=== PATIENT | male | born 1935 | race Caucasian/White ===

== ENCOUNTER 2017-05-10 01:08 | Inpatient (IN) | payer OTHER, MEDICARE ==
[~2017-05-10] VITALS: Ht 170.2 cm; Wt 71.8 kg
[~2017-05-10 01:08] MED LIST: ASPI-1265 PO; CHOL400C8 PO; DOCU100C41 PO; FAMO40TA7 PO; FOLI0.8T39 PO; GUAI200T5 PO; IBUP-1984 PO; METO25TA6 PO; SEVE800T8 PO
[2017-05-10] MEDS ORDERED: acetaminophen 325mg tablet PO ONE (01:45)
[2017-05-10] MEDS ORDERED: HYDROcodone/acetaminophen 5mg/325mg tablet PO ONE (01:45)
[2017-05-10 01:48] LABS: PROTHROMBIN TIME 10.5 SECONDS (9.0-12.0)
[2017-05-10 01:49] LABS: BASOPHILS % (AUTO) 0.3 % (0-1); EOSINOPHILS # (AUTO) 0.1 X10'3 (0-0.9); EOSINOPHILS % (AUTO) 1.3 % (0-6); HEMATOCRIT 32.1 % (42.0-52.0); HEMOGLOBIN 10.4 g/dl (14.0-17.9); LYMPHOCYTES # (AUTO) 1.3 X10'3 (1.1-4.8); LYMPHOCYTES % (AUTO) 18.9 % (21-51); MEAN CORPUSCULAR HEMOGLOBIN 31.9 PG (27.0-31.0); MEAN CORPUSCULAR HGB CONC 32.3 % (33.0-36.5); MEAN CORPUSCULAR VOLUME 98.8 FL (78-98); MEAN PLATELET VOLUME 9.8 FL (7.4-10.4); MONOCYTES # (AUTO) 0.9 X10'3 (0-0.9); NEUTROPHILS # (AUTO) 4.7 X10'3 (1.8-7.7); NEUTROPHILS % (AUTO) 66.5 % (42-75); PLATELET COUNT 266 X10'3 (140-440); RED BLOOD COUNT 3.25 X10'6 (4.70-6.10); RED CELL DISTRIBUTION WIDTH 15.6 % (11.5-14.5)
[2017-05-10 01:53] LABS: ALANINE AMINOTRANSFERASE 18 U/L (12-78); ALBUMIN 2.9 G/DL (3.4-5.0); ALBUMIN/GLOBULIN RATIO 0.8 (1.1-1.5); ALKALINE PHOSPHATASE 104 IU/L (46-116); ANION GAP 5 (8-16); ASPARTATE AMINO TRANSFERASE 13 U/L (10-37); BILIRUBIN,TOTAL 0.3 MG/DL (0.1-1.0); BLOOD UREA NITROGEN 37 MG/DL (7-18); BUN/CREATININE RATIO 6.3 (5.4-32.0); CHLORIDE 106 MMOL/L (99-107); CREATININE 5.89 MG/DL (0.60-1.10); GLUCOSE 128 MG/DL (70-104); POTASSIUM 4.4 MMOL/L (3.5-5.1); SODIUM 146 MMOL/L (135-145); TOTAL CARBON DIOXIDE 34.6 MMOL/L (24-32); TOTAL PROTEIN 6.6 G/DL (6.4-8.2); eGFR 9 ML/MIN
[2017-05-10] MEDS ORDERED: aspirin 325mg tablet PO ONE (02:00)
[2017-05-10] MEDS ORDERED: nitroGLYCERIN 0.4mg SUBLingual tab SL PRN (03:15)
[2017-05-10 03:45] LABS: HEMOGLOBIN A1C 5.6 % (4.5-6.2)
[2017-05-10] MEDS ORDERED: heparin 10,000 units/1 ML INJ IV ONE (03:55)
[2017-05-10] MEDS ORDERED: heparin 10,000 units/1 ML INJ IV PRN (03:55)
[2017-05-10 04:30] VITALS: BP 154/82
[2017-05-10 05:30] VITALS: BP 151/80
[2017-05-10] MEDS ORDERED: sevelamer carbonate 800mg tablet PO SCH (08:00)
[2017-05-10] MEDS ORDERED: metoprolol tartrate 25mg tablet PO SCH (08:00)
[2017-05-10] MEDS ORDERED: aspirin 81mg tablet.DR PO SCH (08:00)
[2017-05-10] MEDS ORDERED: nitroGLYCERIN 1gm ointment UD TP PRN (10:10)
[2017-05-10] MEDS ORDERED: NITR1OIN TP (10:30)
[2017-05-11] MEDS ORDERED: METO25TA6 PO (20:56)
== END 2017-05-10 11:00 | disposition home or self-care (01) | DRG 193 ==
LOC: ER 01:09 → ED HOLD 03:14 → PCU 3S 04:30
PROVIDERS: ADMIT Internal Medicine Critical Care Medicine; ATTEND Internal Medicine Critical Care Medicine
DX: R09.1 Pleurisy (principal); N18.6 End stage renal disease; I12.0 Hypertensive chronic kidney disease with stage 5 chronic kidney disease or end stage renal disease; R07.89 Other chest pain; I25.10 Atherosclerotic heart disease of native coronary artery without angina pectoris; G43.909 Migraine, unspecified, not intractable, without status migrainosus; M48.00 Spinal stenosis, site unspecified; I25.2 Old myocardial infarction; Z90.5 Acquired absence of kidney; Z99.2 Dependence on renal dialysis; Z88.5 Allergy status to narcotic agent; Z79.899 Other long term (current) drug therapy; Z85.528 Personal history of other malignant neoplasm of kidney
CPT/HCPCS: 36415; 70450; 71045; 80053; 82948; 83036; 83735; 83880; 84145; 84484; 85025; 85610; 87070; 93005; 93308; 97116; 97161; 99285; J1644; J2270

== ENCOUNTER 2017-05-11 01:35 | Emergency (ER) | payer OTHER, MEDICARE ==
[~2017-05-11] VITALS: Ht 170.2 cm; Wt 72.2 kg
[~2017-05-11 01:35] MED LIST changes: -ASPI-1265 PO; -GUAI200T5 PO; -IBUP-1984 PO; +NITR1OIN TP
[2017-05-11 02:26] LABS: ALBUMIN 3.2 G/DL (3.4-5.0); ANION GAP 8 (8-16); BLOOD UREA NITROGEN 49 MG/DL (7-18); BUN/CREATININE RATIO 6.6 (5.4-32.0); CHLORIDE 105 MMOL/L (99-107); GLUCOSE 187 MG/DL (70-104); SODIUM 145 MMOL/L (135-145); TOTAL CARBON DIOXIDE 32.3 MMOL/L (24-32); eGFR 7 ML/MIN
[2017-05-11 03:56] VITALS: BP 143/91
[2017-05-11] MEDS ORDERED: METO25TA6 PO (20:56)
== END 2017-05-11 04:00 | disposition home or self-care (01) ==
LOC: ER 01:35
DX: I12.0 Hypertensive chronic kidney disease with stage 5 chronic kidney disease or end stage renal disease (principal); N18.6 End stage renal disease; I21.4 Non-ST elevation (NSTEMI) myocardial infarction; R51 Headache; Z88.5 Allergy status to narcotic agent; Z99.2 Dependence on renal dialysis
CPT/HCPCS: 36415; 80048; 83880; 84484; 93005; 99285

== ENCOUNTER 2017-05-11 17:23 | Inpatient (IN) | payer OTHER, MEDICARE ==
[~2017-05-11] VITALS: Ht 170.2 cm; Wt 71.3 kg
[2017-05-11 20:04] LABS: BASOPHILS % (AUTO) 0.4 % (0-1); EOSINOPHILS # (AUTO) 0.1 X10'3 (0-0.9); EOSINOPHILS % (AUTO) 1.2 % (0-6); HEMATOCRIT 32.5 % (42.0-52.0); HEMOGLOBIN 10.7 g/dl (14.0-17.9); LYMPHOCYTES # (AUTO) 1.3 X10'3 (1.1-4.8); LYMPHOCYTES % (AUTO) 14.2 % (21-51); MEAN CORPUSCULAR HEMOGLOBIN 33.1 PG (27.0-31.0); MEAN CORPUSCULAR VOLUME 100.2 FL (78-98); MEAN PLATELET VOLUME 8.9 FL (7.4-10.4); MONOCYTES # (AUTO) 1.4 X10'3 (0-0.9); MONOCYTES % (AUTO) 15.6 % (2-12); NEUTROPHILS # (AUTO) 6.2 X10'3 (1.8-7.7); NEUTROPHILS % (AUTO) 68.6 % (42-75); PLATELET COUNT 261 X10'3 (140-440); RED BLOOD COUNT 3.24 X10'6 (4.70-6.10); RED CELL DISTRIBUTION WIDTH 16.2 % (11.5-14.5); WHITE BLOOD COUNT 9.1 X10'3 (4.5-11.0)
[2017-05-11 20:12] LABS: CLARITY,URINE CLEAR (Clear); COLOR,URINE YELLOW (Yellow); GLUCOSE, URINE 250 mg/dl (Neg); KETONES,URINE NEGATIVE (Neg); LEUKOCYTE ESTERASE ,URINE NEGATIVE (Neg); NITRITES, URINE NEGATIVE (Neg); OCCULT BLOOD,URINE TRACE-INTACT (Neg); PH,URINE >=9.0 (4.8-8.0); PROTEIN,URINE >=300 mg/dl (Neg); UROBILINOGEN,URINE 0.2 E.U/dL (0.2-1.0)
[2017-05-11 20:13] LABS: PARTIAL THROMBOPLASTIN TIME 30 SECONDS (22-32); PROTHROMBIN TIME 10.6 SECONDS (9.0-12.0)
[2017-05-11 20:14] LABS: UA COLLECTION TYPE VOIDED
[2017-05-11 20:18] LABS: ALANINE AMINOTRANSFERASE 32 U/L (12-78); ALBUMIN/GLOBULIN RATIO 0.8 (1.1-1.5); ALKALINE PHOSPHATASE 84 IU/L (46-116); ANION GAP 5 (8-16); ASPARTATE AMINO TRANSFERASE 27 U/L (10-37); BILIRUBIN,TOTAL 0.5 MG/DL (0.1-1.0); BLOOD UREA NITROGEN 29 MG/DL (7-18); BUN/CREATININE RATIO 5.7 (5.4-32.0); CALCIUM 9.3 MG/DL (8.5-10.1); CHLORIDE 100 MMOL/L (99-107); CREATININE 5.07 MG/DL (0.60-1.10); GLUCOSE 126 MG/DL (70-104); POTASSIUM 3.9 MMOL/L (3.5-5.1); SODIUM 141 MMOL/L (135-145); TOTAL CARBON DIOXIDE 36.2 MMOL/L (24-32); eGFR 11 ML/MIN
[2017-05-11 20:28] LABS: ETHANOL < 0.010 GM/DL (0.0-0.010)
[2017-05-11 20:30] LABS: SQUAMOUS EPITHELIAL CELL,UR MODERATE /LPF (FEW); TRANSITIONAL EPI CELLS,URINE FEW /HPF
[2017-05-11 20:31] LABS: BACTERIA,URINE FEW /HPF (Neg); RBC,URINE 0-2 /HPF (0-2); WBC,URINE 0-4 /HPF (0-4)
[2017-05-11] MEDS ORDERED: METO25TA6 PO (20:56)
[2017-05-11 20:58] LABS: ANISOCYTOSIS 1+; PLATELET ESTIMATE NORMAL
[2017-05-11] MEDS ORDERED: normal saline 1000ml 1,000 ML IV SCH (21:43)
[2017-05-11] MEDS ORDERED: ibuprofen tablet 400 MG TABLET PO ONE (23:55)
[2017-05-12] MEDS ORDERED: LORazepam 2 mg/ml vial IV ONE (02:30)
[2017-05-12 08:42] LABS: PARTIAL THROMBOPLASTIN TIME 31 SECONDS (22-32); PROTHROMBIN TIME 10.8 SECONDS (9.0-12.0)
[2017-05-12 08:54] LABS: ALANINE AMINOTRANSFERASE 19 U/L (12-78); ALBUMIN 2.7 G/DL (3.4-5.0); ALBUMIN/GLOBULIN RATIO 0.8 (1.1-1.5); ALKALINE PHOSPHATASE 81 IU/L (46-116); ANION GAP 8 (8-16); ASPARTATE AMINO TRANSFERASE 15 U/L (10-37); BILIRUBIN,TOTAL 0.6 MG/DL (0.1-1.0); BLOOD UREA NITROGEN 34 MG/DL (7-18); BUN/CREATININE RATIO 5.9 (5.4-32.0); CALCIUM 8.9 MG/DL (8.5-10.1); CHLORIDE 102 MMOL/L (99-107); CHOL/HDL RATIO 3.6 (0.00-4.99); CHOLESTEROL 155 MG/DL (0-200); CREATININE 5.73 MG/DL (0.60-1.10); GLUCOSE 185 MG/DL (70-104); HDL CHOLESTEROL 43 MG/DL (35-60); LDL CHOLESTEROL 98 MG/DL (50-100); MAGNESIUM 1.8 MG/DL (1.5-2.4); POTASSIUM 4.2 MMOL/L (3.5-5.1); SODIUM 142 MMOL/L (135-145); TOTAL CARBON DIOXIDE 31.7 MMOL/L (24-32); TOTAL PROTEIN 6.3 G/DL (6.4-8.2); TRIGLYCERIDES 108 MG/DL (20-135); eGFR 10 ML/MIN
[2017-05-12 08:55] LABS: BASOPHILS % (AUTO) 0.4 % (0-1); EOSINOPHILS # (AUTO) 0.1 X10'3 (0-0.9); EOSINOPHILS % (AUTO) 0.9 % (0-6); HEMATOCRIT 31.7 % (42.0-52.0); HEMOGLOBIN 10.4 g/dl (14.0-17.9); LYMPHOCYTES # (AUTO) 0.9 X10'3 (1.1-4.8); LYMPHOCYTES % (AUTO) 12.2 % (21-51); MEAN CORPUSCULAR HEMOGLOBIN 32.7 PG (27.0-31.0); MEAN CORPUSCULAR HGB CONC 32.9 % (33.0-36.5); MEAN CORPUSCULAR VOLUME 99.4 FL (78-98); MEAN PLATELET VOLUME 9.3 FL (7.4-10.4); MONOCYTES % (AUTO) 14.4 % (2-12); NEUTROPHILS % (AUTO) 72.1 % (42-75); PLATELET COUNT 213 X10'3 (140-440); RED BLOOD COUNT 3.18 X10'6 (4.70-6.10); RED CELL DISTRIBUTION WIDTH 16.9 % (11.5-14.5)
[2017-05-12] MEDS: aspirin 81mg tablet.DR PO SCH (09:17)
[2017-05-12] MEDS: heparin, porcine 5000 units/ml vial SQ SCH ×2 (09:17→20:33)
[2017-05-12] MEDS ORDERED: furosemide 10 MG/1 ML 10ml inj IV ONE (11:50)
[2017-05-12 13:00] VITALS: BP 147/77
[2017-05-12 16:11] VITALS: BP 147/94
[2017-05-12 18:00] VITALS: BP 157/70
[2017-05-12 22:00] VITALS: BP 176/79
[2017-05-13 02:00] VITALS: BP 155/78
[2017-05-13 05:25] LABS: BASOPHILS % (AUTO) 0.3 % (0-1); EOSINOPHILS # (AUTO) 0.1 X10'3 (0-0.9); EOSINOPHILS % (AUTO) 1.6 % (0-6); HEMATOCRIT 31.7 % (42.0-52.0); HEMOGLOBIN 10.5 g/dl (14.0-17.9); LYMPHOCYTES # (AUTO) 0.8 X10'3 (1.1-4.8); LYMPHOCYTES % (AUTO) 11.6 % (21-51); MEAN CORPUSCULAR HEMOGLOBIN 32.7 PG (27.0-31.0); MEAN CORPUSCULAR HGB CONC 33.1 % (33.0-36.5); MEAN PLATELET VOLUME 9.6 FL (7.4-10.4); MONOCYTES # (AUTO) 1.1 X10'3 (0-0.9); NEUTROPHILS # (AUTO) 4.8 X10'3 (1.8-7.7); NEUTROPHILS % (AUTO) 70.5 % (42-75); PLATELET COUNT 212 X10'3 (140-440); RED CELL DISTRIBUTION WIDTH 16.6 % (11.5-14.5); WHITE BLOOD COUNT 6.9 X10'3 (4.5-11.0)
[2017-05-13 05:43] LABS: PARTIAL THROMBOPLASTIN TIME 31 SECONDS (22-32); PROTHROMBIN TIME 10.7 SECONDS (9.0-12.0)
[2017-05-13 06:11] LABS: ALANINE AMINOTRANSFERASE 22 U/L (12-78); ALBUMIN 2.6 G/DL (3.4-5.0); ALBUMIN/GLOBULIN RATIO 0.7 (1.1-1.5); ALKALINE PHOSPHATASE 77 IU/L (46-116); ANION GAP 10 (8-16); ASPARTATE AMINO TRANSFERASE 24 U/L (10-37); BILIRUBIN,TOTAL 0.6 MG/DL (0.1-1.0); BLOOD UREA NITROGEN 50 MG/DL (7-18); BUN/CREATININE RATIO 6.6 (5.4-32.0); CHLORIDE 102 MMOL/L (99-107); CREATININE 7.59 MG/DL (0.60-1.10); GLUCOSE 125 MG/DL (70-104); POTASSIUM 4.5 MMOL/L (3.5-5.1); SODIUM 141 MMOL/L (135-145); TOTAL CARBON DIOXIDE 28.6 MMOL/L (24-32); TOTAL PROTEIN 6.2 G/DL (6.4-8.2); eGFR 7 ML/MIN
[2017-05-13 08:00] VITALS: BP 159/85
[2017-05-13] MEDS ORDERED: normal saline 1000ml 250 ML IV PRN (09:10)
[2017-05-13] MEDS ORDERED: heparin 1,000 units/ml 10ml inj IV ONE (09:10)
[2017-05-13] MEDS ORDERED: LIDOcaine 1% (10mg/ml) 2ml vial SQ ONE (09:10)
[2017-05-13] MEDS: aspirin 81mg tablet.DR PO SCH (09:11)
[2017-05-13] MEDS: heparin, porcine 5000 units/ml vial SQ SCH (09:11)
[2017-05-13 12:04] VITALS: BP 130/82
[2017-05-13] MEDS ORDERED: clopidogrel 75mg tablet PO SCH (12:40)
[2017-05-13] MEDS ORDERED: ASPI-1071 PO (12:42)
[2017-05-13] MEDS ORDERED: CLOP75TA15 PO (12:42)
[2017-05-13 16:04] LABS: UREA NITROGEN 24HR,URINE 1.2 GM/24HR (7-20)
== END 2017-05-13 15:00 | DRG 69 ==
LOC: ER 17:23 → ED HOLD 21:37 → PCU 3S 05-12 12:59
PROVIDERS: ADMIT Internal Medicine Critical Care Medicine; ATTEND Internal Medicine Critical Care Medicine
PROC: 5A1D70Z Performance of Urinary Filtration, Intermittent, Less than 6 Hours Per Day (ICD-10-PCS; principal; 2017-05-13)
DX: G45.9 Transient cerebral ischemic attack, unspecified (principal); I12.0 Hypertensive chronic kidney disease with stage 5 chronic kidney disease or end stage renal disease; N18.6 End stage renal disease; I08.3 Combined rheumatic disorders of mitral, aortic and tricuspid valves; R13.0 Aphagia; R56.9 Unspecified convulsions; R47.01 Aphasia; I25.10 Atherosclerotic heart disease of native coronary artery without angina pectoris; G43.909 Migraine, unspecified, not intractable, without status migrainosus; R41.3 Other amnesia; B34.9 Viral infection, unspecified; Z99.2 Dependence on renal dialysis; I25.2 Old myocardial infarction; Z88.5 Allergy status to narcotic agent; Z79.899 Other long term (current) drug therapy; Z87.891 Personal history of nicotine dependence
CPT/HCPCS: 36415; 70450; 70544; 70551; 71046; 80053; 80061; 80320; 81001; 82570; 82948; 83036; 83735; 84156; 84439; 84443; 84560; 85025; 85610; 85730; 87070; 92616; 93005; 99285; G0257; J1644; J1940; J2060; J3490; J7030

== ENCOUNTER 2019-02-20 15:52 | Emergency (ER) | payer MEDICARE, OTHER ==
[~2019-02-20] VITALS: Ht 170.2 cm; Wt 72.7 kg
[~2019-02-20 15:52] MED LIST changes: +ASPI-1071 PO; +CLOP75TA15 PO; -NITR1OIN TP
[2019-02-20 17:16] LABS: BASOPHILS % (AUTO) 0.3 % (0-1); EOSINOPHILS % (AUTO) 0 % (0-6); HEMATOCRIT 33.1 % (42.0-52.0); HEMOGLOBIN 11.5 g/dl (14.0-17.9); LYMPHOCYTES # (AUTO) 0.5 X10'3 (1.1-4.8); MEAN CORPUSCULAR HEMOGLOBIN 35.1 PG (27.0-31.0); MEAN CORPUSCULAR HGB CONC 34.7 g/dL (33.0-36.5); MEAN CORPUSCULAR VOLUME 101.3 FL (78-98); MEAN PLATELET VOLUME 9.2 FL (7.4-10.4); MONOCYTES # (AUTO) 0.8 X10'3 (0-0.9); MONOCYTES % (AUTO) 13.2 % (2-12); NEUTROPHILS # (AUTO) 4.6 X10'3 (1.8-7.7); NEUTROPHILS % (AUTO) 78.5 % (42-75); PLATELET COUNT 147 X10'3 (140-440); RED BLOOD COUNT 3.27 X10'6 (4.70-6.10); RED CELL DISTRIBUTION WIDTH 13.9 % (11.5-14.5); WHITE BLOOD COUNT 5.9 X10'3 (4.5-11.0)
[2019-02-20 17:22] LABS: PARTIAL THROMBOPLASTIN TIME 27 SECONDS (22-32)
[2019-02-20 17:24] LABS: ALANINE AMINOTRANSFERASE 27 U/L (12-78); ALBUMIN 3.2 G/DL (3.4-5.0); ALBUMIN/GLOBULIN RATIO 0.9 (1.1-1.5); ALKALINE PHOSPHATASE 85 IU/L (46-116); ANION GAP 7 (8-16); ASPARTATE AMINO TRANSFERASE 24 U/L (10-37); BILIRUBIN,TOTAL 0.5 MG/DL (0.1-1.0); BLOOD UREA NITROGEN 17 MG/DL (7-18); BUN/CREATININE RATIO 2.9 (5.4-32.0); CALCIUM 9.6 MG/DL (8.5-10.1); CHLORIDE 104 MMOL/L (99-107); CREATININE 5.81 MG/DL (0.60-1.10); GLUCOSE 114 MG/DL (70-104); POTASSIUM 3.3 MMOL/L (3.5-5.1); SODIUM 139 MMOL/L (135-145); TOTAL CARBON DIOXIDE 28.3 MMOL/L (24-32); TOTAL PROTEIN 6.8 G/DL (6.4-8.2); eGFR 9 ML/MIN
[2019-02-20 18:11] LABS: ETHANOL < 0.010 GM/DL (0.0-0.010)
--- NOTE | 2019-02-20 18:30 | NUR ---
assumed care of pat . pt currently loc x4 all vss updated plan of care. rr unlabored . attentive at the bedside
--- NOTE | 2019-02-20 19:15 | NUR ---
pt repositioned and given a warm blanket and reviewed labs
[2019-02-20 19:41] VITALS: BP 130/59
--- NOTE | 2019-02-20 19:46 | NUR ---
PT TROPONIN AT 0.09 FROM THE [address] BERGMAN AWARE OF THE TREND AND IS COMFORTBALE WITH DISCHARGE . STATED PT IS ON DILYSIS AND THIS IS EXPECTED TO BE SEEN WITH HIS CURRENT MEDICAL CONDITION
== END 2019-02-20 19:49 | disposition home or self-care (01) ==
LOC: ER 15:52
DX: I12.0 Hypertensive chronic kidney disease with stage 5 chronic kidney disease or end stage renal disease (principal); N18.6 End stage renal disease; G43.909 Migraine, unspecified, not intractable, without status migrainosus; I25.10 Atherosclerotic heart disease of native coronary artery without angina pectoris; I25.2 Old myocardial infarction; Z98.61 Coronary angioplasty status; Z99.2 Dependence on renal dialysis; Z88.5 Allergy status to narcotic agent; Z79.82 Long term (current) use of aspirin; Z79.899 Other long term (current) drug therapy
CPT/HCPCS: 36415; 70450; 71045; 80053; 80320; 82140; 83605; 84484; 85025; 85610; 85730; 87040; 93005; 99284

== ENCOUNTER 2019-03-20 14:09 | Outpatient (CLI) | payer OTHER | END 2019-03-20 23:59 | disposition home or self-care (01) | LOC: RAD 14:09 | PROVIDERS: ATTEND Nurse Practitioner Family | DX: R13.14 Dysphagia, pharyngoesophageal phase (principal); K21.9 Gastro-esophageal reflux disease without esophagitis; I10 Essential (primary) hypertension; M19.90 Unspecified osteoarthritis, unspecified site; Z87.891 Personal history of nicotine dependence; Z79.899 Other long term (current) drug therapy | CPT/HCPCS: 74220; 74230 ==

== ENCOUNTER 2019-12-09 13:45 | Emergency (ER) | payer OTHER ==
[~2019-12-09] VITALS: Ht 170.2 cm; Wt 72.7 kg
[2019-12-09] MEDS ORDERED: HYDROcodone/acetaminophen 10/325mg tab PO ONE (14:15)
[2019-12-09 15:33] VITALS: BP 138/62
== END 2019-12-09 15:35 | disposition home or self-care (01) ==
LOC: ER 13:46
DX: R58 Hemorrhage, not elsewhere classified (principal); N18.6 End stage renal disease; G43.909 Migraine, unspecified, not intractable, without status migrainosus; I25.10 Atherosclerotic heart disease of native coronary artery without angina pectoris; I12.0 Hypertensive chronic kidney disease with stage 5 chronic kidney disease or end stage renal disease; I25.2 Old myocardial infarction; Z99.2 Dependence on renal dialysis; Z98.61 Coronary angioplasty status; Z88.5 Allergy status to narcotic agent; Z79.82 Long term (current) use of aspirin; Z79.899 Other long term (current) drug therapy
CPT/HCPCS: 99283

== ENCOUNTER 2020-11-14 10:19 | Observation (INO) | payer OTHER ==
[~2020-11-14] VITALS: Ht 170.2 cm; Wt 65.0 kg
[~2020-11-14 10:19] MED LIST changes: +LOP25T PO; -METO25TA6 PO
[2020-11-14 11:26] LABS: BASOPHILS % (AUTO) 0.4 % (0-1); EOSINOPHILS % (AUTO) 0.4 % (0-6); HEMOGLOBIN 11.6 g/dl (14.0-17.9); LYMPHOCYTES # (AUTO) 1.5 X10'3 (1.1-4.8); LYMPHOCYTES % (AUTO) 29.3 % (21-51); MEAN CORPUSCULAR HEMOGLOBIN 35.3 PG (27.0-31.0); MEAN CORPUSCULAR HGB CONC 34.2 g/dL (33.0-36.5); MEAN CORPUSCULAR VOLUME 103.2 FL (78-98); MEAN PLATELET VOLUME 9.6 FL (7.4-10.4); MONOCYTES # (AUTO) 0.7 X10'3 (0-0.9); MONOCYTES % (AUTO) 13.6 % (2-12); NEUTROPHILS # (AUTO) 2.9 X10'3 (1.8-7.7); NEUTROPHILS % (AUTO) 56.3 % (42-75); PLATELET COUNT 144 X10'3 (140-440); RED BLOOD COUNT 3.29 X10'6 (4.70-6.10); RED CELL DISTRIBUTION WIDTH 13.7 % (11.5-14.5); WHITE BLOOD COUNT 5.1 X10'3 (4.5-11.0)
[2020-11-14 11:45] LABS: ALANINE AMINOTRANSFERASE 19 U/L (12-78); ALBUMIN 2.8 G/DL (3.4-5.0); ALBUMIN/GLOBULIN RATIO 0.8 (1.1-1.5); ALKALINE PHOSPHATASE 74 IU/L (46-116); ANION GAP 7 (8-16); ASPARTATE AMINO TRANSFERASE 16 U/L (10-37); BILIRUBIN,TOTAL 0.8 MG/DL (0.1-1.0); BLOOD UREA NITROGEN 14 MG/DL (7-18); BUN/CREATININE RATIO 2.3 (5.4-32.0); CALCIUM 9.4 MG/DL (8.5-10.1); CHLORIDE 103 MMOL/L (99-107); CREATININE 6.07 MG/DL (0.60-1.10); GLUCOSE 90 MG/DL (70-104); POTASSIUM 4.3 MMOL/L (3.5-5.1); SODIUM 141 MMOL/L (135-145); TOTAL CARBON DIOXIDE 31.3 MMOL/L (24-32); TOTAL PROTEIN 6.4 G/DL (6.4-8.2); eGFR 9 ML/MIN
--- NOTE | 2020-11-14 13:24 | NUR ---
BP HIGH 189/71 HR 62, REPORTS HE DIDNT TAKE HIS CARVEDILOL 6.25MG THIS MORNING.DR PORTER MADE AWARE.OK TO GIVE PO MED X1.
[2020-11-14] MEDS ORDERED: furosemide 10 MG/1 ML 10ml inj IV ONE (13:25)
[2020-11-14] MEDS ORDERED: carVEDilol 3.125mg tablet PO STA (13:25)
[2020-11-14] MEDS ORDERED: nitroGLYCERIN 0.4mg SUBLingual tab SL PRN ×2 (13:25→14:30)
--- NOTE | 2020-11-14 13:55 | NUR ---
TO CT VIA [facility]
[2020-11-14] MEDS ORDERED: magnesium hydroxide 30ml (MOM) UD suspension PO PRN (14:30)
[2020-11-14] MEDS ORDERED: acetaminophen 325mg tablet PO PRN ×2 (14:30)
[2020-11-14] MEDS ORDERED: ondansetron/PF 4mg/2ml inj IV PRN (14:30)
[2020-11-14] MEDS ORDERED: morphine 2 MG/ML inj. syringe IV PRN ×2 (14:30)
[2020-11-14] MEDS ORDERED: mag hydrox/Alum hydrox/simeth 30ml oral suspension PO PRN (14:30)
--- NOTE | 2020-11-14 15:00 | NUR ---
SPOUSE AT BEDSIDE.
[2020-11-14] MEDS ORDERED: CARV-49 PO (17:12)
--- NOTE | 2020-11-14 17:20 | NUR ---
Patient in room ED 4. I have received report from Mere SHERMAN and had the opportunity to ask questions and assume patient care.
--- NOTE | 2020-11-14 17:30 | NUR ---
REPORT TO WHIT SERNA ON ORTHO-NEURO. DAPHNE CONCERNED ABOUT PATIENT PERSISTENT BP 180/69. PAGE TO DR. PUGH FOR POSSIBLE BLOOD PRESSURE MEDICATION. PAGER ID: [phone] MESSAGE: ER BED #4 C.S. STILL HAS BP 180/69. LASIX AND COREG GIVEN EARLIER. MED-ASSEMBLY RIVETER WOULD LIKE MED FOR PERSISTENT ELEVATED BP. THANK YOU, EDGARD [phone]
[2020-11-14 18:00] VITALS: BP 190/73
--- NOTE | 2020-11-14 18:02 | NUR ---
PAGER ID: [phone] MESSAGE: Sofía SHERMAN [phone] RE: Virgilio Rivera [id number]. Pts BP 190/73. Thank you.
--- NOTE | 2020-11-14 18:35 | NUR ---
Problems reprioritized. Patient report given, questions answered & plan of care reviewed with Cathryn SHERMAN.
[2020-11-14] MEDS ORDERED: carVEDilol 12.5mg tablet PO ONE (19:40)
[2020-11-14] MEDS: sevelamer carbonate 800mg tablet PO SCH (19:45)
--- NOTE | 2020-11-14 20:00 | NUR ---
Called MD to inform him that Dr Nelson did not answer page. Patient had BP of 190/73. 1 time order of Coreg 12.5. and to continue with 6.25 BID.
[2020-11-14] MEDS: heparin, porcine 5000 units/ml vial SQ SCH (20:10)
[2020-11-14] MEDS ORDERED: HYDROcodone/acetaminophen 10/325mg tab PO PRN (20:25)
[2020-11-14 22:00] VITALS: BP 125/48
[2020-11-15 06:00] VITALS: BP 179/64
[2020-11-15 06:22] LABS: BASOPHILS % (AUTO) 0.5 % (0-1); EOSINOPHILS % (AUTO) 0.9 % (0-6); HEMATOCRIT 29.2 % (42.0-52.0); HEMOGLOBIN 10.1 g/dl (14.0-17.9); LYMPHOCYTES # (AUTO) 1.3 X10'3 (1.1-4.8); LYMPHOCYTES % (AUTO) 32.2 % (21-51); MEAN CORPUSCULAR HEMOGLOBIN 35.7 PG (27.0-31.0); MEAN CORPUSCULAR HGB CONC 34.6 g/dL (33.0-36.5); MEAN CORPUSCULAR VOLUME 103.3 FL (78-98); MEAN PLATELET VOLUME 9.7 FL (7.4-10.4); MONOCYTES # (AUTO) 0.6 X10'3 (0-0.9); MONOCYTES % (AUTO) 15.4 % (2-12); NEUTROPHILS # (AUTO) 2.1 X10'3 (1.8-7.7); PLATELET COUNT 113 X10'3 (140-440); RED BLOOD COUNT 2.82 X10'6 (4.70-6.10); RED CELL DISTRIBUTION WIDTH 13.5 % (11.5-14.5)
--- NOTE | 2020-11-15 06:31 | NUR ---
Problems reprioritized. Patient report given, questions answered & plan of care reviewed with WHIT Linder.
[2020-11-15 06:42] LABS: ALBUMIN 2.3 G/DL (3.4-5.0); ANION GAP 6 (8-16); BLOOD UREA NITROGEN 23 MG/DL (7-18); CALCIUM 9.2 MG/DL (8.5-10.1); CHLORIDE 105 MMOL/L (99-107); CHOLESTEROL 84 MG/DL (0-200); CREATININE 7.69 MG/DL (0.60-1.10); GLUCOSE 79 MG/DL (70-104); HDL CHOLESTEROL 43 MG/DL (35-60); LDL CHOLESTEROL 26 MG/DL (50-100); POTASSIUM 4.3 MMOL/L (3.5-5.1); SODIUM 142 MMOL/L (135-145); TOTAL CARBON DIOXIDE 31.2 MMOL/L (24-32); TRIGLYCERIDES 59 MG/DL (20-135); eGFR 7 ML/MIN
--- NOTE | 2020-11-15 06:46 | NUR ---
Patient in room ORTHO 4011B. I have received report from WHIT MONTANEZ and had the opportunity to ask questions and assume patient care.
[2020-11-15 08:00] LABS: PLATELET ESTIMATE DECREASED; TOTAL CELLS COUNTED 100
[2020-11-15] MEDS ORDERED: aspirin 81mg tablet.DR PO SCH (08:00)
[2020-11-15] MEDS ORDERED: carvedilol 6.25mg tablet PO SCH (08:00)
[2020-11-15] MEDS: sevelamer carbonate 800mg tablet PO SCH (09:13)
[2020-11-15] MEDS: heparin, porcine 5000 units/ml vial SQ SCH (09:13)
[2020-11-15 10:00] VITALS: BP 188/68
--- NOTE | 2020-11-15 11:19 | NUR ---
D/C INSTRUCTIONS GIVEN, QUESTIONS ANSWERED. BELONGINGS GATHERED BY AND SENT WITH PT. IV D/C'D, CANNULA INTACT, NO COMPLICATIONS. D/C'D PT IN STABLE CONDITION TO HOME IN PRIVATE VEHICLE ACCOMPANIED BY . PT LEFT FLOOR AT 1115
== END 2020-11-15 11:15 | disposition home or self-care (01) ==
LOC: ER 10:20 → UNDOADMOB 14:26 → ED HOLD 14:26 → EDBEDREQTM 16:51 → EDBEDREQSVC 16:51 → ORTHO 4S 17:58
PROVIDERS: ADMIT Internal Medicine; ATTEND Internal Medicine
DX: R07.89 Other chest pain (principal); I13.0 Hypertensive heart and chronic kidney disease with heart failure and stage 1 through stage 4 chronic kidney disease, or unspecified chronic kidney disease; N18.6 End stage renal disease; R91.1 Solitary pulmonary nodule; Z79.82 Long term (current) use of aspirin; Z87.891 Personal history of nicotine dependence; Z99.2 Dependence on renal dialysis; Z79.899 Other long term (current) drug therapy
CPT/HCPCS: 36415; 71045; 71250; 74176; 80048; 80053; 80061; 83880; 84484; 85007; 85025; 87081; 93005; 96372; 96374; 96375; 97110; 97116; 97161; 99285; G0378; J1644; J1940; J2270; 96376

== ENCOUNTER 2021-08-04 07:14 | Day surgery (SDC) | payer OTHER ==
[2021-07-29 12:34] LABS: BASOPHILS % (AUTO) 0.4 % (0-1); EOSINOPHILS % (AUTO) 0.5 % (0-6); LYMPHOCYTES # (AUTO) 0.8 X10'3 (1.1-4.8); LYMPHOCYTES % (AUTO) 20.2 % (21-51); MEAN CORPUSCULAR HEMOGLOBIN 35.6 PG (27.0-31.0); MEAN CORPUSCULAR HGB CONC 33.4 g/dL (33.0-36.5); MEAN CORPUSCULAR VOLUME 106.5 FL (78-98); MEAN PLATELET VOLUME 9.8 FL (7.4-10.4); MONOCYTES # (AUTO) 0.7 X10'3 (0-0.9); MONOCYTES % (AUTO) 16.4 % (2-12); NEUTROPHILS # (AUTO) 2.6 X10'3 (1.8-7.7); NEUTROPHILS % (AUTO) 62.5 % (42-75); PRE OP HEMATOCRIT 39.5 % (42.0-52.0); PRE OP HEMOGLOBIN 13.2 g/dL (14.0-17.9); PRE OP PLATELET COUNT 136 X10'3 (140-440); RED BLOOD COUNT 3.71 X10'6 (4.70-6.10); RED CELL DISTRIBUTION WIDTH 16.2 % (11.5-14.5)
[2021-07-29 12:48] LABS: PRE OP INR 1.1 INR; PRE OP PROTIME 11.2 SECONDS (9.0-12.0)
[2021-07-29 12:49] LABS: ALBUMIN/GLOBULIN RATIO 0.9 (1.1-1.5); ALKALINE PHOSPHATASE 79 IU/L (46-116); BLOOD UREA NITROGEN 17 MG/DL (7-18); BUN/CREATININE RATIO 2.9 (5.4-32.0); CALCIUM 9.1 MG/DL (8.5-10.1); CHLORIDE 106 MMOL/L (99-107); CREATININE 5.79 MG/DL (0.60-1.10); PRE OP ALT 18 U/L (30-65); PRE OP ANION GAP 11 (8-16); PRE OP AST 12 U/L (10-37); PRE OP BILIRUB, TOTAL 0.5 MG/DL (0.0-1.0); PRE OP GLUCOSE 124 MG/DL (70-104); PRE OP POTASSIUM 4.6 MMOL/L (3.4-5.1); PRE OP SODIUM 146 MMOL/L (135-145); TOTAL CARBON DIOXIDE 28.6 MMOL/L (24-32); TOTAL PROTEIN 6.2 G/DL (6.4-8.2); eGFR 9 ML/MIN
[2021-08-04] VITALS (15 sets, daily range): BP systolic 102–178; BP diastolic 59–76
[~2021-08-04] VITALS: Ht 170.2 cm; Wt 68.7 kg
[~2021-08-04 07:14] MED LIST changes: +AMLO10TA PO; -ASPI-1071 PO; +ASPI-611 PO; +ATOR20TA PO; +CARV-49 PO; +CLON0.1T2 PO; -CLOP75TA15 PO; +DOCUMENT DATE & TIME OF BETA-BLOCKER PO ONE; +FINA5TAB42 PO; +HYDR-3972 PO; +HYDR-4069 PO; +LIDO700A32 TOP; -LOP25T PO; +NITR0.4T51 SL; +OMEG-79 PO; +UBID100C16 PO; +cefazolin/dext.iso 2gm/50ml IV ONE; +famotidine 20mg tablet PO ONE; +normal saline 1000ml 1,000 ML IV SCH
[2021-08-04] MEDS ORDERED: FENTANYL CITRATE/PF 50 MCG/1 ML VIAL ONE ×2 (10:37)
[2021-08-04] MEDS ORDERED: MIDAZolam 1 MG/ML 5ML VIAL ONE (10:38)
[2021-08-04] MEDS ORDERED: ROPIVAcaine 0.5% (5mg/ml) 30ml vial ONE ×2 (10:43)
[2021-08-04] MEDS ORDERED: propofol inj 0 ML IV ONE (10:54)
[2021-08-04] MEDS ORDERED: LIDOcaine 2% (20mg/ml) 5ml vial ONE ×2 (10:54→11:18)
[2021-08-04] MEDS ORDERED: propofol inj 20 ML IV ONE ×2 (11:18)
--- NOTE | 2021-08-04 12:24 | NUR ---
Received from OR via [facility] , accompanied by Anesthesiologist DR HORN and report given by Anesthesiolgist. PT PRESENTS WITH PIV 20G LEFT AC, DRESSING ON RIGHT LOWER ARM CLEAN DRY AND INTACT, VSS.
[2021-08-04] MEDS ORDERED: hydrALAZINE 20mg/ml inj. IV ONE (13:35)
[2021-08-04] MEDS ORDERED: HYDROcodone/acetaminophen 10/325mg tab PO ONE (14:10)
--- NOTE | 2021-08-04 14:34 | NUR ---
PATIENT DISCHARGED FROM PACU IN STABLE CONDITION AFTER WRITTEN AND VERBAL DISCHARGE INSTRUCTIONS GIVEN TO PT AND PT'S SIGNIFICANT OTHER, MARCELLUS. PATIENT GAVE VERBAL UNDERSTANDING OF INSTRUCTIONS GIVEN. PATIENT LEFT FACILITY VIA WHEELCHAIR WITH RN. PT TO FOLLOW UP TOMORROW FOR DIALYSIS. Addendum: 08/04/21 at 1449 by Yohana Rincon RN, RN Amended: Links added.
== END 2021-08-04 14:34 | disposition home or self-care (01) ==
LOC: PRE-OP 07:14
PROVIDERS: ATTEND Surgery
DX: T82.590A Other mechanical complication of surgically created arteriovenous fistula, initial encounter (principal); I12.0 Hypertensive chronic kidney disease with stage 5 chronic kidney disease or end stage renal disease; N18.6 End stage renal disease; M19.90 Unspecified osteoarthritis, unspecified site; G89.18 Other acute postprocedural pain; G89.29 Other chronic pain; Z20.822 Contact with and (suspected) exposure to COVID-19; Z79.899 Other long term (current) drug therapy; Z87.891 Personal history of nicotine dependence; Z90.5 Acquired absence of kidney; Z98.890 Other specified postprocedural states; Z85.828 Personal history of other malignant neoplasm of skin; Z85.528 Personal history of other malignant neoplasm of kidney; Y83.2 Surgical operation with anastomosis, bypass or graft as the cause of abnormal reaction of the patient, or of later complication, without mention of misadventure at the time of the procedure; Y92.89 Other specified places as the place of occurrence of the external cause
CPT/HCPCS: 35011; 36415; 64417; 71046; 76942; 80053; 82948; 85025; 85610; 85730; 93005; C1757; C9803; J0360; J0690; J1644; J2250; J2704; J2795; J3010; J3490; J7030; J7040; J7120; U0003; U0005; Z7506; Z7508; Z7512; A4215; A4618; A7000

== ENCOUNTER 2021-08-14 02:19 | Emergency (ER) | payer OTHER, MEDICARE ==
[~2021-08-14] VITALS: Ht 170.2 cm; Wt 62.0 kg
[~2021-08-14 02:19] MED LIST changes: -DOCUMENT DATE & TIME OF BETA-BLOCKER PO ONE; -cefazolin/dext.iso 2gm/50ml IV ONE; -famotidine 20mg tablet PO ONE; -normal saline 1000ml 1,000 ML IV SCH
[2021-08-14] MEDS ORDERED: LIDOCAINE 2% w/EPI 1:100:000 30mL injection MDV**cath lab 1 only SQ ONE (03:30)
[2021-08-14] MEDS ORDERED: HYDROmorphone 2mg tablet PO ONE (03:30)
[2021-08-14] MEDS ORDERED: ondansetron 4mg rapidly disintigrating tab PO ONE (04:05)
[2021-08-14 05:13] VITALS: BP 178/83
== END 2021-08-14 05:26 | disposition home or self-care (01) ==
LOC: ER 02:20
DX: S61.411A Laceration without foreign body of right hand, initial encounter (principal); R60.0 Localized edema; I12.0 Hypertensive chronic kidney disease with stage 5 chronic kidney disease or end stage renal disease; N18.6 End stage renal disease; G43.909 Migraine, unspecified, not intractable, without status migrainosus; I25.10 Atherosclerotic heart disease of native coronary artery without angina pectoris; I25.2 Old myocardial infarction; Z88.8 Allergy status to other drugs, medicaments and biological substances; Z79.82 Long term (current) use of aspirin; Z79.899 Other long term (current) drug therapy; Z99.2 Dependence on renal dialysis; Z95.5 Presence of coronary angioplasty implant and graft; W01.0XXA Fall on same level from slipping, tripping and stumbling without subsequent striking against object, initial encounter; Y93.89 Activity, other specified; Y92.098 Other place in other non-institutional residence as the place of occurrence of the external cause; Y99.8 Other external cause status
CPT/HCPCS: 12005; 73130; 99283

== ENCOUNTER 2021-11-13 23:41 | Inpatient (IN) | payer OTHER, MEDICARE ==
[~2021-11-13] VITALS: Ht 170.2 cm; Wt 54.0 kg
[2021-11-14] VITALS (15 sets, daily range): BP systolic 113–162; BP diastolic 49–77
[2021-11-14 02:38] LABS: BASOPHILS % (AUTO) 0.5 % (0-1); EOSINOPHILS % (AUTO) 0.7 % (0-6); LYMPHOCYTES # (AUTO) 1.5 X10'3 (1.1-4.8); LYMPHOCYTES % (AUTO) 22.6 % (21-51); MEAN CORPUSCULAR HEMOGLOBIN 37.7 PG (27.0-31.0); MEAN CORPUSCULAR HGB CONC 34.4 g/dL (33.0-36.5); MEAN CORPUSCULAR VOLUME 109.4 FL (78-98); MEAN PLATELET VOLUME 8.8 FL (7.4-10.4); MONOCYTES # (AUTO) 1.1 X10'3 (0-0.9); MONOCYTES % (AUTO) 16.8 % (2-12); NEUTROPHILS # (AUTO) 3.9 X10'3 (1.8-7.7); NEUTROPHILS % (AUTO) 59.4 % (42-75); PLATELET COUNT 198 X10'3 (140-440); RED BLOOD COUNT 1.59 X10'6 (4.70-6.10); RED CELL DISTRIBUTION WIDTH 14.4 % (11.5-14.5); WHITE BLOOD COUNT 6.5 X10'3 (4.5-11.0)
[2021-11-14] MEDS ORDERED: pantoprazole 40 MG vial IV ONE (02:40)
[2021-11-14 02:44] LABS: ALANINE AMINOTRANSFERASE 21 U/L (12-78); ALBUMIN 2.6 G/DL (3.4-5.0); ALBUMIN/GLOBULIN RATIO 0.7 (1.1-1.5); ALKALINE PHOSPHATASE 73 IU/L (46-116); ANION GAP 12 (8-16); ASPARTATE AMINO TRANSFERASE 20 U/L (10-37); BILIRUBIN,TOTAL 0.3 MG/DL (0.1-1.0); BLOOD UREA NITROGEN 58 MG/DL (7-18); CALCIUM 9.3 MG/DL (8.5-10.1); CHLORIDE 105 MMOL/L (99-107); CREATININE 6.45 MG/DL (0.60-1.10); GLUCOSE 130 MG/DL (70-104); SODIUM 143 MMOL/L (135-145); TOTAL CARBON DIOXIDE 26.4 MMOL/L (24-32); TOTAL PROTEIN 6.1 G/DL (6.4-8.2); eGFR 8 ML/MIN
[2021-11-14] MEDS ORDERED: pantoprazole 40MG/NS 100ML BAG 100 ML IV ONE (02:50)
[2021-11-14] MEDS: morphine 2 MG/ML inj. syringe IV PRN ×4 (02:55→04:50)
[2021-11-14 03:01] LABS: HEMATOCRIT 17.3 % (42.0-52.0)
[2021-11-14] MEDS ORDERED: ondansetron/PF 4mg/2ml inj IV ONE (04:10)
[2021-11-14] MEDS ORDERED: ondansetron 4mg rapidly disintigrating tab PO PRN (05:40)
[2021-11-14] MEDS ORDERED: diphenhydrAMINE 50 mg/ml inj IV PRN (05:40)
[2021-11-14] MEDS ORDERED: bisacodyl 10mg suppository rectal RC PRN (05:40)
[2021-11-14] MEDS ORDERED: magnesium hydroxide 30ml (MOM) UD suspension PO PRN (05:40)
[2021-11-14] MEDS ORDERED: mag hydrox/Alum hydrox/simeth 30ml oral suspension PO PRN (05:40)
[2021-11-14] MEDS ORDERED: diphenhydrAMINE 25mg capsule PO PRN (05:40)
[2021-11-14] MEDS ORDERED: racepinephrine 11.25mg/0.5ml nebule NEB PRN (05:40)
[2021-11-14] MEDS ORDERED: morphine 2 MG/ML inj. syringe IV PRN ×2 (05:40)
[2021-11-14] MEDS ORDERED: normal saline 1000ml 1,000 ML IV SCH (05:40)
[2021-11-14] MEDS ORDERED: ondansetron/PF 4mg/2ml inj IV PRN (05:40)
[2021-11-14] MEDS ORDERED: acetaminophen 650mg rectal suppository RC PRN (05:40)
[2021-11-14] MEDS ORDERED: acetaminophen 325mg tablet PO PRN ×2 (05:40)
[2021-11-14] MEDS: pantoprazole 40MG/NS 100ML BAG 100 ML IV SCH ×2 (09:04→21:45)
[2021-11-14] MEDS: docusate sod 100mg capsule PO SCH ×2 (09:05→21:46)
[2021-11-14 10:40] LABS: HEMATOCRIT 29.4 % (42.0-52.0); HEMOGLOBIN 9.9 g/dl (14.0-17.9); MEAN CORPUSCULAR HEMOGLOBIN 32.9 PG (27.0-31.0); MEAN CORPUSCULAR HGB CONC 33.7 g/dL (33.0-36.5); MEAN CORPUSCULAR VOLUME 97.4 FL (78-98); MEAN PLATELET VOLUME 8.7 FL (7.4-10.4); PLATELET COUNT 172 X10'3 (140-440); RED BLOOD COUNT 3.01 X10'6 (4.70-6.10); RED CELL DISTRIBUTION WIDTH 26.8 % (11.5-14.5); WHITE BLOOD COUNT 6.1 X10'3 (4.5-11.0)
--- NOTE | 2021-11-14 10:50 | NUR ---
PATIENT RECEIVES DIALYSIS REGULARLY AND DOES NOT PRODUCE MUCH URINE ON HIS OWN. UNABLE TO OBTAIN URINE FOR UA AT THIS TIME AND DR. ACUNA NOTIFIED OF THIS. NO NEW ORDERS.
[2021-11-14 10:51] LABS: APTT 24 SECONDS (22-32); D-DIMER 1.97 MG/L FEU (0-0.50)
[2021-11-14 11:03] LABS: MAGNESIUM 2.4 MG/DL (1.5-2.4)
[2021-11-14 11:05] LABS: HEMOGLOBIN A1C 5.6 % (4.5-6.2)
--- NOTE | 2021-11-14 11:14 | NUR ---
LAB CALLED WITH CRITICAL RESULT OF TROPONIN. PAGE TO DR. ACUNA TO INFORM. PAGER ID: [phone] MESSAGE: ER BED #7-HOMERONam ZIMMER. PATIENT HAS TROPONIN OF 967. QUESTIONS, CALL EDGARD [phone]
[2021-11-14 13:10] LABS: CLARITY,URINE CLEAR (Clear); COLOR,URINE YELLOW (Yellow); GLUCOSE, URINE 100 mg/dl (Neg); KETONES,URINE NEGATIVE (Neg); LEUKOCYTE ESTERASE ,URINE SMALL (Neg); NITRITES, URINE NEGATIVE (Neg); OCCULT BLOOD,URINE NEGATIVE (Neg); PH,URINE 8.5 (4.8-8.0); PROTEIN,URINE 30 mg/dl (Neg); UROBILINOGEN,URINE 0.2 E.U/dL (0.2-1.0)
[2021-11-14 13:11] LABS: UA COLLECTION TYPE URINAL
[2021-11-14 13:16] LABS: SQUAMOUS EPITHELIAL CELL,UR MODERATE /LPF (FEW)
[2021-11-14 13:17] LABS: BACTERIA,URINE FEW /HPF (Neg)
[2021-11-14 13:18] LABS: RBC,URINE 0-2 /HPF (0-2)
--- NOTE | 2021-11-14 13:30 | NUR ---
Dr Leach aware of elevated troponin from 1000 hour and there are no new orders
--- NOTE | 2021-11-14 13:54 | NUR ---
Pt brought up to floor and assessed and now taken down to GI lab. Dr Delarosa also aware of patient for dialysis tomorrow.
[2021-11-14] MEDS ORDERED: fentaNYL/PF 50MCG/1 ML 2ML syringe ONE (14:02)
[2021-11-14] MEDS ORDERED: MIDAZolam 1 MG/ML 5ML VIAL ONE (14:02)
[2021-11-14] MEDS ORDERED: LIDOcaine Viscous 15ml cup ONE (14:02)
--- NOTE | 2021-11-14 16:06 | NUR ---
helped with admission assessment and states patient has an advance directive that states he is a DNR with comfort care, the patient says he is a full code and understands that if his heart stopped he would have compressions and an attempt to revive him but also understands that if he dies thats okay too with his condition. I told him that if any point he wants to talk to a doctor about any changes to let us know. He states understanding at this time.
[2021-11-14] MEDS: HYDROcodone/acetaminophen 5mg/325mg tablet PO PRN (17:55)
--- NOTE | 2021-11-14 18:04 | NUR ---
BP in 160's, Paged Dr Leach about restarting bp meds. PAGER ID: [phone] MESSAGE: Juani, pcjosé [phone] Nam Rivera [id number] Can you restart patients blood pressure meds and other meds? His Bp is 164 systolic and he doesn't have anything ordered. Thanks.
--- NOTE | 2021-11-14 18:48 | NUR ---
Report given to Curtis SHERMAN, Pt resting comfortably, no distress, eating dinner.
[2021-11-14] MEDS ORDERED: benzocaine/menthol oral lozeng 1 EACH BOX MM PRN (20:15)
[2021-11-14] MEDS ORDERED: HALLS - SOOTHE MENTHOL 1.8 MG cough drop LOZENGE MM PRN (20:35)
[2021-11-14] MEDS: temazepam 15mg capsule PO PRN (21:46)
[2021-11-15 06:00] VITALS: BP 165/64
--- NOTE | 2021-11-15 06:33 | NUR ---
Problems reprioritized. Patient report given, questions answered & plan of care reviewed with CHARY. Addendum: 11/15/21 at 0634 by Zion Dominguez RN Amended: Links added.
--- NOTE | 2021-11-15 06:42 | NUR ---
Patient in room PCU 3018. I have received report from Curtis SHERMAN and had the opportunity to ask questions and assume patient care.
[2021-11-15 07:14] LABS: BASOPHILS % (AUTO) 0.3 % (0-1); EOSINOPHILS % (AUTO) 0.5 % (0-6); HEMATOCRIT 29.2 % (42.0-52.0); HEMOGLOBIN 9.8 g/dl (14.0-17.9); LYMPHOCYTES % (AUTO) 10.9 % (21-51); MEAN CORPUSCULAR HEMOGLOBIN 32.8 PG (27.0-31.0); MEAN CORPUSCULAR HGB CONC 33.7 g/dL (33.0-36.5); MEAN CORPUSCULAR VOLUME 97.3 FL (78-98); MEAN PLATELET VOLUME 8.8 FL (7.4-10.4); MONOCYTES # (AUTO) 1.2 X10'3 (0-0.9); MONOCYTES % (AUTO) 13.3 % (2-12); PLATELET COUNT 179 X10'3 (140-440); RED CELL DISTRIBUTION WIDTH 26.1 % (11.5-14.5); WHITE BLOOD COUNT 9.3 X10'3 (4.5-11.0)
[2021-11-15 07:43] LABS: ALANINE AMINOTRANSFERASE 19 U/L (12-78); ALBUMIN 2.3 G/DL (3.4-5.0); ALBUMIN/GLOBULIN RATIO 0.7 (1.1-1.5); ALKALINE PHOSPHATASE 62 IU/L (46-116); ANION GAP 12 (8-16); ASPARTATE AMINO TRANSFERASE 25 U/L (10-37); BILIRUBIN,TOTAL 0.6 MG/DL (0.1-1.0); BLOOD UREA NITROGEN 66 MG/DL (7-18); BUN/CREATININE RATIO 8.1 (5.4-32.0); CALCIUM 9.3 MG/DL (8.5-10.1); CHLORIDE 108 MMOL/L (99-107); CHOL/HDL RATIO 2.6 (0.00-4.99); CHOLESTEROL 88 MG/DL (0-200); CREATININE 8.14 MG/DL (0.60-1.10); GLUCOSE 77 MG/DL (70-104); HDL CHOLESTEROL 34 MG/DL (35-60); LDL CHOLESTEROL 36 MG/DL (50-100); SODIUM 144 MMOL/L (135-145); TOTAL CARBON DIOXIDE 23.8 MMOL/L (24-32); TOTAL PROTEIN 5.7 G/DL (6.4-8.2); TRIGLYCERIDES 78 MG/DL (20-135); eGFR 6 ML/MIN
[2021-11-15] MEDS ORDERED: normal saline 1000ml 100 ML IV PRN (08:00)
[2021-11-15 08:12] LABS: POTASSIUM 6.1 MMOL/L (3.5-5.1)
[2021-11-15] MEDS ORDERED: metoclopramide 10mg tablet PO PRN (08:40)
--- NOTE | 2021-11-15 10:19 | NUR ---
Malnutrition consult: Pt admitted w/ ESRD on HD, PUD, and anemia per EMR. Current scaled wt shows 54kg while previous scaled wt in August of this year shows 62kg which constitutes a severe 13% wt loss in 3 months. Pt states he has difficulty chewing r/t dental issues and also has decreased appetite and is not able to eat much before feeling full. Recommend BSS w/ MANAGER SIX SIGMA to determine food texture and swallow safety. Also visualized pt at bedside w/ moderate temporal wasting. At this time pt meets criteria for malnutrition. Pt also mentions he has issues with stooling, that he has to manually disimpact, currently on colace. Recommend advancing to Renal diet once medically appropriate. Will continue to monitor. Recs: 1. Advance to Renal diet when medically appropriate; BSS w/ MANAGER SIX SIGMA 2. Monitor need for ONS 3. Routine bowel care 4. Scaled wts Addendum: 11/15/21 at [address] Amended: Links added.
[2021-11-15 11:00] VITALS: BP 164/65
[2021-11-15 11:22] LABS: PLATELET ESTIMATE NORMAL
[2021-11-15 11:23] LABS: ANISOCYTOSIS 3+; LARGE PLATELETS FEW
[2021-11-15 11:24] LABS: ELLIPTOCYTES FEW
[2021-11-15 11:25] LABS: ACANTHOCYTES FEW
[2021-11-15] MEDS: pantoprazole 40MG/NS 100ML BAG 100 ML IV SCH (12:07)
[2021-11-15] MEDS: docusate sod 100mg capsule PO SCH ×2 (12:08→20:00)
[2021-11-15 12:59] LABS: OCCULT BLOOD STOOL POSITIVE (Neg)
[2021-11-15] MEDS: SODIUM ZIRCONIUM CYCLOSILICATE 10 GM POWD.PACK PO SCH ×2 (14:19→20:13)
[2021-11-15 15:00] VITALS: BP 184/64
--- NOTE | 2021-11-15 18:26 | NUR ---
patient seen by Dr julian and Dr valentine , is for dialysis in am. Critical K of 6.1, MD aware, see emar. Patient up to BR x2, UA and Stool sample sent. patient commenced on renal diet. Pulled out IV ok to not have IV per DR Valentine. Report given to Curtis SHERMAN
[2021-11-15 18:30] VITALS: BP 160/90
--- NOTE | 2021-11-15 18:43 | NUR ---
patient had one hard stool . blackish color . using glove to help him pass stool initially .
[2021-11-15] MEDS: pantoprazole 40mg Tablet.DR PO SCH (20:13)
[2021-11-15] MEDS: HYDROcodone/acetaminophen 5mg/325mg tablet PO PRN (20:13)
[2021-11-15 22:00] VITALS: BP 158/80
[2021-11-15] MEDS: temazepam 15mg capsule PO PRN (23:14)
[2021-11-16 02:00] VITALS: BP 155/86
[2021-11-16] MEDS: HYDROcodone/acetaminophen 5mg/325mg tablet PO PRN (04:46)
[2021-11-16 07:29] LABS: BASOPHILS % (AUTO) 0.3 % (0-1); EOSINOPHILS # (AUTO) 0.1 X10'3 (0-0.9); EOSINOPHILS % (AUTO) 1.1 % (0-6); HEMATOCRIT 25.7 % (42.0-52.0); HEMOGLOBIN 8.9 g/dl (14.0-17.9); LYMPHOCYTES # (AUTO) 1.1 X10'3 (1.1-4.8); LYMPHOCYTES % (AUTO) 20.4 % (21-51); MEAN CORPUSCULAR HEMOGLOBIN 33.5 PG (27.0-31.0); MEAN CORPUSCULAR HGB CONC 34.6 g/dL (33.0-36.5); MEAN CORPUSCULAR VOLUME 96.8 FL (78-98); MEAN PLATELET VOLUME 8.7 FL (7.4-10.4); MONOCYTES # (AUTO) 0.8 X10'3 (0-0.9); MONOCYTES % (AUTO) 15.1 % (2-12); NEUTROPHILS # (AUTO) 3.5 X10'3 (1.8-7.7); NEUTROPHILS % (AUTO) 63.1 % (42-75); PLATELET COUNT 158 X10'3 (140-440); RED BLOOD COUNT 2.66 X10'6 (4.70-6.10); WHITE BLOOD COUNT 5.6 X10'3 (4.5-11.0)
[2021-11-16 07:35] LABS: ALANINE AMINOTRANSFERASE 8 U/L (12-78); ALBUMIN 2.1 G/DL (3.4-5.0); ALBUMIN/GLOBULIN RATIO 0.7 (1.1-1.5); ANION GAP 10 (8-16); ASPARTATE AMINO TRANSFERASE 17 U/L (10-37); BILIRUBIN,TOTAL 0.5 MG/DL (0.1-1.0); BLOOD UREA NITROGEN 75 MG/DL (7-18); BUN/CREATININE RATIO 7.8 (5.4-32.0); CALCIUM 8.8 MG/DL (8.5-10.1); CHLORIDE 105 MMOL/L (99-107); CREATININE 9.61 MG/DL (0.60-1.10); GLUCOSE 82 MG/DL (70-104); POTASSIUM 5.7 MMOL/L (3.5-5.1); SODIUM 139 MMOL/L (135-145); TOTAL CARBON DIOXIDE 23.6 MMOL/L (24-32); TOTAL PROTEIN 5.3 G/DL (6.4-8.2); eGFR 5 ML/MIN
[2021-11-16 07:40] VITALS: BP 176/61
[2021-11-16 08:17] LABS: ALKALINE PHOSPHATASE 62 IU/L (46-116)
[2021-11-16] MEDS: docusate sod 100mg capsule PO SCH (09:01)
[2021-11-16] MEDS: SODIUM ZIRCONIUM CYCLOSILICATE 10 GM POWD.PACK PO SCH ×2 (09:01→12:39)
[2021-11-16] MEDS: pantoprazole 40mg Tablet.DR PO SCH (09:01)
[2021-11-16] MEDS ORDERED: LIDOcaine 1% (10mg/ml) 2ml vial SQ ONE (10:55)
[2021-11-16] MEDS ORDERED: PANT40TA54 PO (13:51)
[2021-11-16] MEDS ORDERED: METO10TA3 PO (13:51)
[2021-11-16 15:19] LABS: ALBUMIN 2.6 G/DL (3.4-5.0); ANION GAP 7 (8-16); BLOOD UREA NITROGEN 20 MG/DL (7-18); BUN/CREATININE RATIO 6.6 (5.4-32.0); CALCIUM 8.5 MG/DL (8.5-10.1); CHLORIDE 102 MMOL/L (99-107); CREATININE 3.01 MG/DL (0.60-1.10); GLUCOSE 127 MG/DL (70-104); SODIUM 139 MMOL/L (135-145); TOTAL CARBON DIOXIDE 30.2 MMOL/L (24-32); eGFR 20 ML/MIN
[2021-11-16 15:22] LABS: POTASSIUM 2.9 MMOL/L (3.5-5.1)
--- NOTE | 2021-11-16 15:25 | NUR ---
PAGER ID: [phone] MESSAGE: [id number] Nam Rivera: Critical K 2.9. Dialysis just finished. please advise. thank you, carrington [phone]
[2021-11-16 15:36] VITALS: BP 106/61
[2021-11-16] MEDS ORDERED: potassium Cl 20 mEq SR tablet PO STA (15:48)
--- NOTE | 2021-11-16 16:30 | NUR ---
Patient stable and appropriate for discharge home with friend. All discharge instructions and education given and reviewed with patient, all questions answered.
== END 2021-11-16 16:40 | disposition home or self-care (01) | DRG 377 ==
LOC: ER 23:42 → ED HOLD 11-14 05:41 → PCU 3S 11-14 13:06
PROVIDERS: ADMIT Family Medicine; ATTEND Family Medicine
PROC: 0DJ08ZZ Inspection of Upper Intestinal Tract, Via Natural or Artificial Opening Endoscopic (ICD-10-PCS; principal; 2021-11-14)
PROC: 30233N1 Transfusion of Nonautologous Red Blood Cells into Peripheral Vein, Percutaneous Approach (ICD-10-PCS; 2021-11-14)
PROC: 5A1D70Z Performance of Urinary Filtration, Intermittent, Less than 6 Hours Per Day (ICD-10-PCS; 2021-11-16)
DX: K25.0 Acute gastric ulcer with hemorrhage (principal); I50.33 Acute on chronic diastolic (congestive) heart failure; N18.6 End stage renal disease; D62 Acute posthemorrhagic anemia; I13.2 Hypertensive heart and chronic kidney disease with heart failure and with stage 5 chronic kidney disease, or end stage renal disease; J44.1 Chronic obstructive pulmonary disease with (acute) exacerbation; K80.10 Calculus of gallbladder with chronic cholecystitis without obstruction; Q61.3 Polycystic kidney, unspecified; K29.81 Duodenitis with bleeding; E87.5 Hyperkalemia; K22.2 Esophageal obstruction; K22.89 Other specified disease of esophagus; K44.9 Diaphragmatic hernia without obstruction or gangrene; K57.90 Diverticulosis of intestine, part unspecified, without perforation or abscess without bleeding; E78.5 Hyperlipidemia, unspecified; N40.0 Benign prostatic hyperplasia without lower urinary tract symptoms; K21.00 Gastro-esophageal reflux disease with esophagitis, without bleeding; G43.909 Migraine, unspecified, not intractable, without status migrainosus; K59.00 Constipation, unspecified; G89.4 Chronic pain syndrome; N26.1 Atrophy of kidney (terminal); E03.9 Hypothyroidism, unspecified; F03.90 Unspecified dementia, unspecified severity, without behavioral disturbance, psychotic disturbance, mood disturbance, and anxiety; I73.9 Peripheral vascular disease, unspecified; I25.10 Atherosclerotic heart disease of native coronary artery without angina pectoris; I25.2 Old myocardial infarction; Z99.2 Dependence on renal dialysis; Z87.891 Personal history of nicotine dependence; Z88.5 Allergy status to narcotic agent; Z98.61 Coronary angioplasty status; Z85.528 Personal history of other malignant neoplasm of kidney; Z90.5 Acquired absence of kidney; Z79.899 Other long term (current) drug therapy; Z79.82 Long term (current) use of aspirin
CPT/HCPCS: 36415; 36430; 43235; 71045; 80048; 80053; 80061; 81001; 82272; 83036; 83690; 83735; 83880; 84100; 84443; 84484; 85008; 85025; 85027; 85379; 85610; 85730; 86885; 86900; 86901; 86920; 87077; 87081; 87088; 87186; 92508; 92616; 93005; 93306; 97116; 97161; 97530; 99152; 99285; A4620; A6449; C9113; G0257; G0378; J2250; J2270; J2405; J3010; J3490; J7030; J7040; P9016